=== PATIENT | male | born 1950 | race Caucasian/White ===

== ENCOUNTER 2017-03-13 17:11 | Emergency (ER) | payer OTHER ==
[~2017-03-13] VITALS: Ht 170.2 cm; Wt 63.6 kg
[2017-03-13 17:11] VITALS: BP 138/73; PULSE 79; RESP 17; O2SAT 96
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
[2017-03-13 17:34] LABS: BASOPHILS % (AUTO) 0.4 % (0-3); EOSINOPHILS % (AUTO) 3.7 % (0-5); MONOCYTES % (AUTO) 8.2 % (4-12); Mean Corpuscular Hemoglobin 32.5 pg (27.0-35.0); Mean Corpuscular Volume 94.2 fL (81-100); NEUTROPHILS % (AUTO) 70.1 % (40-74); Platelet Count 192 bil/L (150-400)
--- NOTE | 2017-03-13 18:52 | DRSVH ---
PROCEDURE: CT ABDOMEN AND PELVIS WITH CONTRAST ([id number]) INDICATIONS: trauma TECHNIQUE: After the administration of intravenous contrast, 5 mm thick sections acquired from the diaphragms to the symphysis. 5 mm thick coronal and sagittal reformats were acquired. Optional 10-minute delayed imaging may be performed from the kidneys to the bladder. For radiation dose reduction, the followi ng was used: automated exposure control, adjustment of mA and/or kV according to patient size. COMPARISON: None. FINDINGS: Image quality: Excellent. ABDOMEN: Lung bases: There is mild dependent atelectasis. A small heterogeneous present. Heart size is kamilla l. No pericardial effusion. Inferior ribs are intact. No basal pleural effusions or pneumothorax. Solid organs: Liver and spleen are normal in size and enhancement, without lacerations. There is a small region of mild focal fatty change in the anterior left hepatic lobe. Gallbladder appears withi n normal limits with a calcified gallstones. Biliary system is non-dilated. Pancreas enhances kamilla lly, without transection. No adrenal hematomas. Both kidneys enhance normally, without hydronephros is or lacerations. There is a cyst in the lower pole the right kidney. Peritoneum and bowel: No free fluid or air. Unenhanced bowel loops demonstrate normal wall thicknes s and caliber. Nodes and vessels: No retroperitoneal or mesenteric adenopathy. Aorta and inferior vena cava are no rmal in size and enhancement. Miscellaneous: No ventral hernias. PELVIS: Genitourinary: Bladder wall thickness is normal. Miscellaneous: No discrete hematoma collections in the pelvis are No inguinal hernias or adenopathy. Bones: Pelvic ring and hip joints appear intact. No vertebral compression fractures. IMPRESSION: 1. No acute traumatic abnormality in the abdomen or pelvis. Dictated by: Luis Aguayo M.D. on 03/13/2017 at 18:48 Approved by: Luis Aguayo M.D. on 03/13/2017 at 18:51
[2017-03-13 18:59] VITALS: BP 125/80; PULSE 73; RESP 20; O2SAT 95
[2017-03-13 19:18] VITALS: BP 125/80; PULSE 76; RESP 14; O2SAT 95
== END 2017-03-13 19:15 | disposition home or self-care (01) ==
LOC: SED 17:11
DX: S39.93XA Unspecified injury of pelvis, initial encounter (principal); S30.0XXA Contusion of lower back and pelvis, initial encounter; W30.9XXA Contact with unspecified agricultural machinery, initial encounter; Y93.9 Activity, unspecified; Y92.9 Unspecified place or not applicable; Y99.9 Unspecified external cause status; Z85.01 Personal history of malignant neoplasm of esophagus
CPT/HCPCS: 36415; 74177; 80053; 85025; 99284; Q9967